=== PATIENT | male | born 1960 | race Caucasian/White ===

== ENCOUNTER 2017-01-12 09:00 | Outpatient (CLI) | payer MEDICARE, OTHER | END 2017-01-12 09:01 | DX: E78.5 Hyperlipidemia, unspecified (principal); D64.9 Anemia, unspecified ==

== ENCOUNTER 2017-08-03 15:03 | Outpatient (CLI) | payer MEDICARE | END 2017-08-03 15:04 | LOC: LAB.R 15:03 | PROVIDERS: ATTEND Physician Assistant Medical | DX: J18.9 Pneumonia, unspecified organism (principal) | CPT/HCPCS: 80053; 85025; 85651 ==

== ENCOUNTER 2017-08-03 17:30 | Outpatient (CLI) | payer MEDICARE ==
[2017-08-03 17:43] LABS: BASOPHILS # (AUTO) 0.2 10^3/uL (0.0-0.1); BASOPHILS % (AUTO) 1.3 %; EOSINOPHILS # (AUTO) 0.3 10^3/uL (0.0-0.7); EOSINOPHILS % (AUTO) 2.1 %; HCT - HEMATOCRIT 39.4 % (42.0-52.0); HGB - HEMOGLOBIN 13.3 g/dL (14.0-18.0); LYMPHOCYTES # (AUTO) 1.9 10^3/uL (1.5-3.5); LYMPHOCYTES % (AUTO) 14.1 %; MEAN CORPUSCULAR HEMOGLOBIN 31.5 pg (27.0-31.0); MEAN CORPUSCULAR HGB CONC 33.7 g/dL (32.0-36.0); MEAN CORPUSCULAR VOLUME 93.3 fL (80.0-94.0); MEAN PLATELET VOLUME 7.3 fL (7.4-11.4); MONOCYTES # (AUTO) 0.9 10^3/uL (0.0-1.0); MONOCYTES % (AUTO) 6.6 %; NEUTROPHILS # (AUTO) 10.1 10^3/uL (1.5-6.6); NEUTROPHILS % (AUTO) 75.9 %; RED BLOOD COUNT 4.22 10^6/uL (4.70-6.10); RED CELL DISTRIBUTION WIDTH 13.8 % (12.0-15.0); UNCORRECTED WHITE BLOOD COUNT 13.2 x10^3/uL; WHITE BLOOD COUNT 13.2 x10^3/uL (4.8-10.8)
[2017-08-03 18:03] LABS: BILIRUBIN,TOTAL 0.6 mg/dL (0.2-1.0); CALCIUM 9.2 mg/dL (8.5-10.3); CREATININE 1.1 mg/dL (0.6-1.2); POTASSIUM 3.7 mmol/L (3.5-5.0); TOTAL PROTEIN 7.5 g/dL (6.7-8.2)
[2017-08-03] MEDS ORDERED: IOPAMIDOL-300 100 ML VIAL IVP ONE (19:03)
--- NOTE | 2017-08-03 20:11 | CT Preliminary Report ---
Exam: CT Chest W/ IMPRESSION: 1. There are patchy nodular and groundglass opacities within the mid and lower lungs, most pronounced within the left lung base. Differential considerations include infectious pneumonia, organizing pneu monia, or aspiration. 2. Mildly increased transverse diameter of the heart. There are coronary artery calcifications. 3. The esophagus is mildly patulous. 4. There is large volume stool within colon. [facility] SITE ID: [id number]
--- NOTE | 2017-08-03 20:14 | CT Report ---
EXAM: CT CHEST EXAM DATE: 08/03/2017 07:02 PM. CLINICAL HISTORY: PNEUMONIA. COMPARISONS: 07/01/2017. TECHNIQUE: Routine helical CT imaging was performed through the chest. IV contrast: None. Reconstruct ions: Coronal and sagittal. In accordance with CT protocol optimization, one or more of the following dose reduction techniques w ere utilized for this exam: automated exposure control, adjustment of mA and/or KV based on patient s ize, or use of iterative reconstructive technique. FINDINGS: Lungs/Pleura: There are patchy nodular and groundglass opacities within the lungs, most pronounced wi thin the left lung base. There are scattered foci within the anterior segment of the right upper lobe and within the right lower lobe as well. There is no evidence of pleural effusion. No central airway abnormalities are seen. No evidence of pneumothorax. Mediastinum: Mildly increased transverse diameter of the heart. There are no enlarged axillary, supra clavicular, mediastinal, or hilar lymph nodes. Subcentimeter mediastinal and hilar nodes are present. Bones: The right posterior rib fractures. No acute bony abnormalities are seen. Intrathecal lead term inates at the T12 level. Visualized Abdomen: There is large volume stool within colon. The esophagus is mildly patulous. Visua lized portions of the upper abdominal organs demonstrate no acute abnormalities. Other: None. IMPRESSION: 1. There are patchy nodular and groundglass opacities within the mid and lower lungs, most pronounced within the left lung base. Differential considerations include infectious pneumonia, organizing pneu monia, or aspiration. 2. Mildly increased transverse diameter of the heart. There are coronary artery calcifications. 3. The esophagus is mildly patulous. 4. There is large volume stool within colon. [facility] Referring Provider Line: [phone] SITE ID: [id number]
== END 2017-08-03 17:31 | disposition home or self-care (01) ==
LOC: LAB 17:30
PROVIDERS: ATTEND Physician Assistant Medical
DX: R91.8 Other nonspecific abnormal finding of lung field (principal)
CPT/HCPCS: 36415; 71260; 80053; 85025; 85651